=== PATIENT | male | born 1985 | race Caucasian/White ===

== ENCOUNTER 2023-08-07 17:14 | Emergency (ER) | payer OTHER ==
[~2023-08-07] VITALS: Ht 175.3 cm; Wt 95.2 kg
[2023-08-07 19:06] VITALS: BP 147/102
[2023-08-07] MEDS ORDERED: NAPROXEN500 MG PO (19:06)
[2023-08-07] MEDS ORDERED: FLEXERIL5 M1 PO (19:06)
== END 2023-08-07 19:31 | disposition home or self-care (01) | DRG 605 ==
LOC: ED 17:14
DX: S20.312A Abrasion of left front wall of thorax, initial encounter (principal); S20.212A Contusion of left front wall of thorax, initial encounter; W20.8XXA Other cause of strike by thrown, projected or falling object, initial encounter; Y92.512 Supermarket, store or market as the place of occurrence of the external cause